=== PATIENT | male | born 1995 | race Two or more races ===

== ENCOUNTER 2021-08-22 01:33 | Emergency (ER) | payer SELFPAY ==
[~2021-08-22] VITALS: Ht 182.9 cm; Wt 95.3 kg
[2021-08-22 02:46] VITALS: BP 112/56
== END 2021-08-22 02:49 ==
LOC: ER 01:37
DX: S00.12XA Contusion of left eyelid and periocular area, initial encounter (principal); V43.52XA Car driver injured in collision with other type car in traffic accident, initial encounter; Y93.89 Activity, other specified; Y92.89 Other specified places as the place of occurrence of the external cause; Y99.8 Other external cause status